=== PATIENT | female | born 1955 | race Caucasian/White ===

== ENCOUNTER → 2016-10-08 | Outpatient (CLI) | payer BC ==
--- NOTE | 2016-10-09 09:30 | CT ---
EXAM DESCRIPTION: CT CHEST WITHOUT IV CONTRAST CLINICAL HISTORY: ABNORMAL CXR COMPARISON: Chest CT performed on June 26, 2015 and a chest radiograph obtained on May 27, 2016 TECHNIQUE: Chest CT was performed without IV contrast. FINDINGS: Mural calcifications are noted in the thoracic aorta and Coronary arteries. No thoracic aortic aneurysm. No pleural or pericardial effusion. There are few nonenlarged mediastinal lymph nodes, but no mediastinal or hilar adenopathy is seen. There are patchy areas of subpleural ground-glass density in both lungs, most prominent anteriorly, but this is all stable from June,. A few tiny cystic lesions are noted in the same location, stable. These could represent mild bronchiectasis. There is a 4 mm ground-glass density nodule in the right lung adjacent to the major fissure superiorly (series 2, image 17), new from the prior exam. No new airspace consolidation is identified. There is a tiny calcified gallstone in the gallbladder. There are 2 left adrenal adenomas, each measuring just over 2 cm diameter and stable from June,. No suspicious bone lesion. IMPRESSION: Chronic appearing changes in both lungs as detailed above including patchy areas of ground-glass density and possible mild bronchiectasis. Findings are stable from June, and could represent chronic interstitial lung disease particularly cryptogenic organizing pneumonia. 4 mm ground-glass density nodule in the right lung adjacent to the major fissure superiorly, also nonspecific. Differential considerations include infectious, inflammatory or neoplastic lung disease. As per Fleischner Society guidelines for follow-up and management of pulmonary nodules: For patient at low risk (minimal or absent history of smoking and of other known risk factors), recommend follow-up chest CT at 12 months; if unchanged, no further follow-up. For patient at high risk (history of smoking or of other known risk factors), recommend initial follow-up chest CT at 6-12 months, then at 18-24 months if no interval change. Atherosclerotic vascular disease and other nonacute findings as detailed above Electronically signed by: Jordi Schroeder DO 10/09/2016 09:28
== END | disposition home or self-care (01) ==
LOC: CT 15:00
PROVIDERS: ATTEND Internal Medicine Pulmonary Disease
DX: J44.9 Chronic obstructive pulmonary disease, unspecified (principal); R06.00 Dyspnea, unspecified

== ENCOUNTER → 2017-04-16 | Outpatient (CLI) | payer BC | END | disposition home or self-care (01) | LOC: LAB.O 08:38 | PROVIDERS: ATTEND Orthopaedic Surgery | DX: Z01.818 Encounter for other preprocedural examination (principal); Z01.812 Encounter for preprocedural laboratory examination ==

== ENCOUNTER 2017-04-27 05:49 | Day surgery (SDC) | payer BC ==
--- NOTE | 2017-04-23 16:49 | HP ---
CHIEF COMPLAINT: Left third digit pain. HISTORY OF PRESENT ILLNESS: Carina is a 61 year-old female with a history of pain in the farias aspect of the hand. She has had an injection for trigger finger and had a positive response to that, but she has now had resumption of both pain and clicking. She has had some locking. At this point, Carina is interested in surgical intervention and we discussed the risks, benefits, and alternatives to operative therapy. She has given informed consent for A-1 missael release. PAST SURGICAL HISTORY: 1. Hysterectomy. CURRENT MEDICATIONS: 1. Valsartan. 2. Omeprazole. 3. Simvastatin. 4. Gabapentin. 5. Janumet. 6. Lyrica. 7. Farxiga. 8. ProAir. 9. Calcium. ALLERGIES: SULFA. CODE STATUS: FULL CODE. IMMUNIZATIONS: Up to date. FAMILY HISTORY: None pertinent to today's complaints. SOCIAL HISTORY: She does not drink or use any illicit drugs. She smokes about a pack a day. REVIEW OF SYSTEMS: Negative except as indicated in History of Present Illness. PHYSICAL EXAMINATION: VITAL SIGNS: Blood pressure 146/78, pulse 79, height 5' 4", weight 180. MENTAL STATUS: The patient is awake, alert, and is able to give a good history and participate in the physical. The patient is oriented to person, place and time. SKIN: Normal tone and turgor. MUSCULOSKELETAL: She is extremely tender over the A-1 missael and she has palpable clicking there. Sensation is intact. She does maintain full range of motion of the digit in flexion but she has now got some stiffness in extension. There is no deformity of the hand. ASSESSMENT: 1. Trigger finger. PLAN: The plan at this point is for A-1 missael release at the third digit. We have discussed the risks, benefits, and alternatives to that and she has given informed consent for that. #[id number] [facility]
[2017-04-27] MEDS ORDERED: LACTATED RINGERS 1,000 ML ONE (06:10)
[2017-04-27] MEDS ORDERED: ceFAZolin SODIUM 1 GM VIAL ONE ×2 (06:10→09:33)
[2017-04-27] MEDS ORDERED: SODIUM CHL 0.9% 100ML MINI-BAG 100 ML IVPB ONE (06:10)
[2017-04-27] MEDS ORDERED: PROPOFOL 200 MG/20 ML VIAL IV ONE (07:00)
[2017-04-27] MEDS ORDERED: BUPIVACAINE 0.25% INJ 30 ML VIAL INJ ONE (09:33)
[2017-04-27] MEDS ORDERED: LIDOCAINE 1% 50 ML VIAL INJ ONE (09:33)
[2017-04-27] MEDS ORDERED: VANCOMYCIN HCL INJ 1,000 MG VIAL IVPB ONE (09:33)
[2017-04-27 11:58] VITALS: BP 188/70; TEMP 97.1; O2SAT 95
--- NOTE | 2017-04-27 17:36 | OP ---
DATE OF PROCEDURE: 04/27/17 PREOPERATIVE DIAGNOSIS: 1. Trigger finger, left third digit. POSTOPERATIVE DIAGNOSIS: 1. Trigger finger, left third digit. PROCEDURE: 1. Left third digit A1 missael release. SURGEON: Mathew Aquino MD. MANAGER OUTPATIENT: Jonnie Vazquez CST, SA-C. ANESTHESIA: Local with sedation. COMPLICATIONS: None. FINDINGS: Triggering at the A1 missael with fraying of the FDS flexor tendon at about the level of the A1 missael. INDICATION: Ms. Hassan has a history of triggering and pain at the A1 missael. She has pain there and has requested operative intervention. After discussing the risks, benefits and alternatives to operative therapy, the patient has given informed consent for that. PROCEDURE: The patient was brought to the Operating Room and placed in the supine position. Sedation was administered and local anesthetic was injected into the operative area. Following injection, the arm was sterilely prepped and draped. A transverse incision was made directly overlying the A1 missael of the triggering digit and blunt dissection was carried down to the missael while protecting the digital nerves. After identification of the missael, the missael was transected and a Duncan elevator was passed both proximally and distally to ensure complete release. The finger was flexed and extended and there was no evidence of locking or clicking. The wound was thoroughly irrigated and closed with Nylon suture. A sterile dressing was placed and the patient was taken to the Day Surgery Unit. PLAN: The plan at this point is for her to continue with range of motion of the digits and will followup with us in two days. #[id number] [facility]
== END 2017-04-27 11:50 | disposition home or self-care (01) ==
LOC: AMB 05:49
PROVIDERS: ATTEND Orthopaedic Surgery
DX: M65.332 Trigger finger, left middle finger (principal); I10 Essential (primary) hypertension; E11.9 Type 2 diabetes mellitus without complications; K21.9 Gastro-esophageal reflux disease without esophagitis; J44.9 Chronic obstructive pulmonary disease, unspecified; Z88.2 Allergy status to sulfonamides; Z79.899 Other long term (current) drug therapy
CPT/HCPCS: 01810; 26055; 36416; 82948; J0690; J3370; J3490; J7050; J7120

== ENCOUNTER → 2017-10-11 | Outpatient (CLI) | payer BC ==
--- NOTE | 2017-10-11 13:28 | US ---
EXAM DESCRIPTION: Gall Bladder CLINICAL HISTORY: DYSPEPSIA COMPARISON: None Available. TECHNIQUE: Right upper quadrant ultrasound FINDINGS: Pancreas: Visualized portions of the pancreas are unremarkable. Bowel gas obscures some areas. Aorta/inferior vena cava: No aortic aneurysm. Normal inferior vena cava. Liver: The liver is homogeneous in texture with mildly increased echogenicity of the hepatic parenchyma suggesting mild fatty infiltration. No focal liver lesion or intrahepatic bile duct dilatation. No liver surface irregularity. Portal vein is prominent in caliber measuring 1.3 cm. Otherwise normal appearance of the portal vein and hepatic veins. Gallbladder: Gallbladder appears normal in size with no abnormal distention to suggest obstruction. Echogenic debris is seen in the dependent portion of gallbladder with differential considerations including solidified sludge versus nonshadowing stones. These measure approximately 5-10 mm in diameter with at least 2 identified. Follow-up in a year may be helpful to see if these resolve (as expected for sludge) or if shadowing can be definitively demonstrated (maturing stones). Sonographic Medina sign was reported as negative. Common bile duct: Normal caliber measuring 3.0 mm. Right kidney: Renal length is 10.6 cm. Normal cortical echogenicity. Cortical thickness is normal. No hydronephrosis is seen. No renal mass or shadowing calculus. IMPRESSION: Debris within the gallbladder lumen could be nonshadowing stones or solidified sludge. See above. Electronically signed by: Ramos Brown MD 10/11/2017 1:27 PM VICE CHAIRMAN
== END ==
LOC: US 07:48
PROVIDERS: ATTEND Family Medicine
DX: I50.32 Chronic diastolic (congestive) heart failure (principal); R10.84 Generalized abdominal pain; K30 Functional dyspepsia

== ENCOUNTER → 2017-11-10 | Outpatient (CLI) | payer BC ==
--- NOTE | 2017-11-12 12:43 | MAM ---
EXAM DESCRIPTION: 3D Screening BILATERAL : Digital Mammography. CLINICAL HISTORY: 62 years Female ANNUAL SCREENING . No complaints.. COMPARISON: 2-D digital screening bilateral study 05/05/2016. No prior reports available. Report from prior examination also reviewed. TECHNIQUE: Bilateral CC and MLO projection full-field images, 3-D tomosynthesis digital mammographic technique. Also bilateral synthesized CC/ MLO full-field images. CAD not utilized. FINDINGS: The breast parenchymal density pattern is: Almost entirely fatty. No skin thickening or nipple retraction bilateral solitary coarse and microcalcifications. No focal, stellate mass or density, focal asymmetry , and no suspicious microcalcifications bilaterally. Stable mammograms compared to prior study, taking into account differences in mammographic technique IMPRESSION: BI-RADS CATEGORY: 2 - BENIGN FINDINGS. FOLLOW UP: Routine digital bilateral screening, one - year interval from October 2017. Written communication explaining the IMPRESSION and follow-up, will be mailed to the patient and referring health care provider. According to the [employer], yearly mammograms are recommended starting at age 40 and continuing as long as a woman is in good health. Any breast change noted on a breast self-exam should be reported promptly to the patient's healthcare provider. Breast MRI is recommended for women with an approximately 20-25% or greater lifetime risk of breast cancer, including women with a strong family history of breast or ovarian cancer and women who have been treated for Hodgkin's disease. A negative mammographic report should not delay tissue diagnosis in patients with significant clinical history or physical findings. Extremely dense breast tissue limits the sensitivity of digital mammography. Electronically signed by: Jonnie Vazquez MD 11/12/2017 12:41 PM CDT
== END ==
LOC: MAMMO 08:27
PROVIDERS: ATTEND Family Medicine
DX: Z12.31 Encounter for screening mammogram for malignant neoplasm of breast (principal)

== ENCOUNTER → 2018-02-08 | Outpatient (CLI) | payer BC | LOC: GMAM 12:15 | PROVIDERS: ATTEND Family Medicine | DX: E83.52 Hypercalcemia (principal) ==

== ENCOUNTER → 2018-10-21 | Outpatient (CLI) | payer BC | LOC: GMAM 10:49 | PROVIDERS: ATTEND Family Medicine | DX: M79.89 Other specified soft tissue disorders (principal) ==

== ENCOUNTER → 2018-11-18 | Outpatient (CLI) | payer BC ==
--- NOTE | 2018-11-21 16:30 | MAM ---
EXAM DESCRIPTION: 3D Screening BILATERAL : Digital Mammography. CLINICAL HISTORY: 63 years Female SCREENING . No complaints. Mother with breast cancer. Childbirth. Postmenopausal. No HRT. Lifetime risk of developing breast cancer (Tyrer-Cuzick model)(%): 14.3. COMPARISON: Bilateral screening digital breast tomosynthesis 11/10/2017. TECHNIQUE: Bilateral CC and MLO projection full-field images, digital tomosynthesis mammographic technique Bilateral digital 2-D full-field MLO images. CAD not available for tomosynthesis or 2-D images. FINDINGS: The breast parenchymal density pattern is: Almost entirely fatty. No skin thickening or nipple retraction. Bilateral solitary microcalcifications. Few bilateral vascular calcifications. More calcifications in the left breast. No new focal, stellate mass or density, focal asymmetry , and no suspicious microcalcifications bilaterally. Stable mammograms compared to prior study. IMPRESSION: Benign exam. BIRAD CATEGORY: 2 BENIGN FINDINGS. RECOMMENDATIONS: FOLLOW UP: Routine digital bilateral mammographic screening, one year interval from October 2018. Written communication explaining the IMPRESSION and follow-up, will be mailed to the patient and referring health care provider. According to the [employer], yearly mammograms are recommended starting at age 40 and continuing as long as a woman is in good health. Any breast change noted on a breast self-exam should be reported promptly to the patient's healthcare provider. Breast MRI is recommended for women with an approximately 20-25% or greater lifetime risk of breast cancer, including women with a strong family history of breast or ovarian cancer and women who have been treated for Hodgkin's disease. A negative mammographic report should not delay tissue diagnosis in patients with significant clinical history or physical findings. Extremely dense breast tissue limits the sensitivity of digital mammography. Electronically signed by: Jonnie Vazquez MD 11/21/2018 4:28 PM CDT
== END ==
LOC: MAMMO 08:00
PROVIDERS: ATTEND Family Medicine
DX: Z12.31 Encounter for screening mammogram for malignant neoplasm of breast (principal)

== ENCOUNTER → 2019-01-23 | Outpatient (CLI) | payer BC ==
--- NOTE | 2019-01-23 09:21 | CT ---
EXAM DESCRIPTION: Chest w/o Contrast CLINICAL HISTORY: 63 years, Female, COPD COMPARISON: Previous CT chest October 08, 2016 TECHNIQUE: Thin-section noncontrast axial CT images are obtained according to our protocol. Reconstructed MPR images are created and reviewed as well. FINDINGS: Lungs: Groundglass infiltrates are seen in the upper and lower lobes with honeycomb fibrosis anteriorly. There is mild interval progression since previous study. Differential considerations would include DIP with developing UIP. Acute on chronic hypersensitivity pneumonitis could have a similar appearance. Pneumonia is not thought likely. If lung biopsy is planned for diagnosis, samples should be obtained from areas of groundglass infiltrate which would more likely show active inflammation. Tiny nodule in superior segment right lower lobe measures 4 mm. This is unchanged compared to the previous study two years and three months ago and no further imaging follow-up is needed for this finding. Mediastinum: Lymph nodes are normal in size. Normal vascular contours. Heart size is normal with no pericardial effusion. Chest wall/axilla: No mass or adenopathy. Lower neck/supraclavicular: No mass or adenopathy. Upper abdomen: Few calcified gallstones in the dependent portion of the gallbladder. Thick adrenal glands bilaterally consistent with hyperplasia or adenomas. Appearance is unchanged compared to previous study. Small accessory splenule is present. Otherwise unremarkable upper abdominal viscera. IMPRESSION: Groundglass infiltrates and honeycomb fibrosis of the lungs slightly progressed since previous study. See above. This exam was performed according to our departmental dose-optimization program, which includes automated exposure control, adjustment of the mA and/or kV according to patient size and/or use of iterative reconstruction technique. Total DLP equals 386.7 mGycm. Electronically signed by: Ramos Brown MD 01/23/2019 9:19 AM CDT
== END ==
LOC: CT 08:10
DX: J44.9 Chronic obstructive pulmonary disease, unspecified (principal); J84.10 Pulmonary fibrosis, unspecified

== ENCOUNTER 2019-05-02 16:48 | Inpatient (IN) | payer BC ==
--- NOTE | 2019-05-02 17:01 | HP ---
SUPERVISING PHYSICIAN: Dalton Reardon M.D. CHIEF COMPLAINT: Shortness of breath. HISTORY OF PRESENT ILLNESS: This is a 63 year-old female who came in as a direct admission from Dr. Adorno's office. This is a patient who has a longstanding history of smoking and has a history of chronic obstructive pulmonary disease. She has a documented history of diastolic heart failure as well although she states she has never been told that. Anyhow the patient complained of shortness of breath which started today. She is not having any complaints of fever. She has had somewhat of a cough. When she coughs it is productive with whitish yellow sputum which is somewhat frothy at times. She did not complain of any pleuritic chest pain. 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 When she got over to the office her O2 saturations were in the mid to high 80s. She was placed on oxygen and it still hovered around 90% range. A chest x-ray was done which showed pulmonary vascular congestion and bilateral lower lobe airspace opacities which were concerning for pneumonia via the interpretation. Her labs were done which showed a normal white count with no left shift. Her chemistry was unremarkable except for a low potassium at 3.2. A BNP was done but was not available upon her arrival here. At the time of examination the patient is alert and oriented with mild to moderate shortness of breath. She did not complain of any pain at this time. PAST MEDICAL HISTORY: 1. Chronic obstructive pulmonary disease for which she uses oxygen at night but no throughout the day. 2. Carotid artery stenosis. 3. Hyperlipidemia. 4. Hypertension. 5. She has an ejection fraction of 60% with diastolic heart failure per a echocardiogram done back in 2016. She has tricuspid regurgitation on the echocardiogram as well. 6. Pulmonary nodule which is followed as an outpatient by Dr. Adhikari. 7. Type 2 diabetes mellitus. 8. Diabetic neuropathy. PAST SURGICAL HISTORY: 1. Hysterectomy with bilateral salpingo-oophorectomy. 2. Bronchoscopy. 3. Colonoscopy. 4. Esophagogastroduodenoscopy. 5. Stress test. 6. Echocardiogram. CURRENT MEDICATIONS: Please see the med. rec. list on the computer. ALLERGIES: SULFA DRUGS. FAMILY HISTORY: Father at age 34 of alcohol abuse. Mother at 86 of age as well as the fact she had coronary artery disease, breast cancer and type 2 diabetes mellitus. SOCIAL HISTORY: REVIEW OF SYSTEMS: PHYSICAL EXAMINATION: VITAL SIGNS: Blood pressure 159/82, heart rate 73, respiratory rate 22, temperature 98.1, oxygen saturation is 93% on nasal cannula. GENERAL: Ms. Hassan is a 63 year-old female who is in mild to moderate respiratory distress at rest. HEENT: Head is normocephalic and atraumatic. Eyes: Pupils are equal and reactive. Nose: No drainage. Throat with moist mucosa. NECK: Supple. Midline trachea. No jugular venous distention. CHEST: Chest is symmetrical with equal rise and fall of the chest with inspiration and expiration. Lung sounds are with bilateral rhonchi. There is wheeze in the upper lung aguirre bilaterally. CARDIOVASCULAR: Regular rate and rhythm. Normal S1 and S2. She does have a 2/6 systolic murmur noted as well. ABDOMEN: Soft. Positive bowel sounds. GENITOURINARY: Exam is deferred. EXTREMITIES: Lower extremities with no significant edema. NEUROLOGIC: The patient is alert and oriented. Moves all extremities. Extraocular movements are intact. LABORATORY: Labs and films as discussed in the History of Present Illness. ASSESSMENT: 1. Acute exacerbation of diastolic heart failure. 2. Chronic obstructive pulmonary disease exacerbation. 3. Possible pneumonia. 4. History of hypertension. 5. Hyperlipidemia. 6. Diabetes mellitus type 2. 7. Continuous nicotine dependency. 8. Gastroesophageal reflux disease. 9. Preexisting heart murmur. 10. Hypokalemia. PLAN: At this time the patient will be admitted to the Medical/Surgery Unit for the above reasons. Will place her on scheduled diuretics and give her a dose of potassium as she has low potassium on her labs at the office. I am also going to place her on scheduled nebulizer therapy as well as scheduled corticosteroids given her COPD exacerbation. Although her white count is normal and no history of fever, cannot completely rule out pneumonia, so I am placing her Rocephin as well as azithromycin. I placed her on DVT and GI ulcer prophylaxis as well as sliding scale insulin per the hospital protocol. Once her medications are verified I will resume those in the computer as well. [id number]
[2019-05-02] MEDS ORDERED: NITROGLYCERIN 0.4 MG 25 EA TAB SL PRN (17:31)
[2019-05-02] MEDS ORDERED: DEXTROSE 50% 25 GM/50 ML SYG IV PRN (17:31)
[2019-05-02] MEDS ORDERED: SODIUM CHLORIDE 0.9% (FLUSH) 10 ML SYG IV PRN (17:31)
[2019-05-02] MEDS ORDERED: GLUCAGON INJ 1 MG VIAL SUBCU PRN (17:31)
[2019-05-02] MEDS ORDERED: POTASSIUM CHLORIDE 20 MEQ TAB PO ONE (17:34)
[2019-05-02] MEDS ORDERED: AZITHROMYCIN IV 500 MG in SODIUM CHLORIDE 0.9% 250ML 250 ML IVPB SCH (18:00)
[2019-05-02] MEDS ORDERED: SODIUM CHLORIDE 0.9% 250ML 250 ML ONE (18:35)
[2019-05-02] MEDS ORDERED: AZITHROMYCIN IV 500 MG VIAL IVPB ONE (18:36)
[2019-05-02] MEDS: ENOXAPARIN SODIUM 40 MG/0.4 ML SYG SUBCU SCH (18:42)
[2019-05-02] MEDS: IV SET AND CAP CHANGE INJ INJ SCH (18:43)
[2019-05-02] MEDS ORDERED: cefTRIAXone SODIUM 1 GM VIAL ONE (19:25)
[2019-05-02] MEDS ORDERED: SODIUM CHLORIDE 0.9% 50ML 50 ML ONE (19:25)
[2019-05-02] MEDS: IPRATROPIUM/ALBUTEROL 3 ML VIAL INH SCH (20:32)
[2019-05-02] MEDS ORDERED: ONDANSETRON INJ 4 MG/2 ML VIAL IV PRN (20:54)
[2019-05-02] MEDS ORDERED: NON-FORMULARY MEDICATION 1 EA MIS (Gabapentin [Neurontin] 600 MG) PO SCH (21:00)
[2019-05-02] MEDS ORDERED: AMLODIPINE BESYLATE 2.5 MG PO SCH (21:00)
[2019-05-02] MEDS ORDERED: GABAPENTIN 300 MG CAP ONE (21:02)
[2019-05-02] MEDS ORDERED: amLODIPine BESYLATE 5 MG TAB ONE ×2 (21:03→21:24)
[2019-05-02] MEDS ORDERED: PREGABALIN 25 MG CAP ONE (21:03)
[2019-05-02] MEDS: INSULIN LISPRO 100 UNITS/ML PEN SUBCU SCH (21:11)
[2019-05-02] MEDS: cefTRIAXone SODIUM 1 GM in SODIUM CHL 0.9% 50ML MIN-BAG+ 50 ML IVPB SCH (21:16)
[2019-05-02] MEDS: METFORMIN PO SCH (21:20)
[2019-05-02] MEDS: SITAGLIPTIN PO SCH (21:20)
[2019-05-02] MEDS: [UNRECOGNIZED DRUG - OTHER] PO SCH (21:20)
[2019-05-02] MEDS: [UNRECOGNIZED DRUG - OTHER] PO SCH (21:20)
[2019-05-02] MEDS: methylPREDNISolone SODIUM SUC 40 MG/ML VIAL IV SCH (21:21)
[2019-05-02] MEDS: NON-FORMULARY MEDICATION 1 EA MIS (Pregabalin [Lyrica] 50 MG) PO SCH (21:24)
[2019-05-02] MEDS: NICOTINE PATCH 21 MG TD SCH (21:35)
[2019-05-03] MEDS: PANTOPRAZOLE SODIUM TAB 40 MG PO SCH (05:54)
[2019-05-03] MEDS: INSULIN LISPRO 100 UNITS/ML PEN SUBCU SCH ×4 (07:07→21:06)
--- NOTE | 2019-05-03 07:39 | RAD ---
EXAM: Single view chest. INDICATION: CHF. COMPARISON: Chest x-ray: 05/27/2016. FINDINGS: There is pulmonary vascular congestion with interstitial edema. The heart is at the upper limit of normal in size. There is no pneumothorax or pleural effusion. IMPRESSION: Pulmonary vascular congestion with interstitial edema. Electronically signed by: Darien Castanon MD 05/03/2019 7:38 AM CDT
[2019-05-03] MEDS ORDERED: [UNRECOGNIZED DRUG - OTHER] PO SCH ×2 (09:00→11:30)
[2019-05-03] MEDS: IPRATROPIUM/ALBUTEROL 3 ML VIAL INH SCH (09:11)
[2019-05-03] MEDS ORDERED: SITagliptin 50 MG TAB PO ONE (09:39)
[2019-05-03] MEDS ORDERED: CITALOPRAM HBR 20 MG TAB ONE (09:39)
[2019-05-03] MEDS ORDERED: metFORMIN HCL 500 MG TAB ONE (09:40)
[2019-05-03] MEDS ORDERED: PREGABALIN 25 MG CAP ONE (09:40)
[2019-05-03] MEDS ORDERED: FUROSEMIDE INJ 40 MG/4 ML VIAL ONE (09:41)
[2019-05-03] MEDS ORDERED: methylPREDNISolone SODIUM SUC 40 MG/ML VIAL ONE (09:41)
[2019-05-03] MEDS: METFORMIN PO SCH (09:52)
[2019-05-03] MEDS: SITAGLIPTIN PO SCH ×2 (09:52→16:48)
[2019-05-03] MEDS: [UNRECOGNIZED DRUG - OTHER] PO SCH (09:52)
[2019-05-03] MEDS: ASPIRIN (ENTERIC COATED) 81 MG TAB PO SCH (09:53)
[2019-05-03] MEDS: LOSARTAN POTASSIUM 100 MG TAB PO SCH (09:53)
[2019-05-03] MEDS: methylPREDNISolone SODIUM SUC 40 MG/ML VIAL IV SCH ×2 (09:53→21:14)
[2019-05-03] MEDS: [UNRECOGNIZED DRUG - OTHER] PO SCH ×3 (09:54→16:48)
[2019-05-03] MEDS: ATORVASTATIN 20 MG TAB PO SCH (09:54)
[2019-05-03] MEDS: CITALOPRAM HBR 20 MG TAB PO SCH (09:55)
[2019-05-03] MEDS: NON-FORMULARY MEDICATION 1 EA MIS (Liraglutide [Victoza] 18 MG) SUBCU SCH (09:55)
[2019-05-03] MEDS: NICOTINE PATCH 21 MG TD SCH (09:55)
[2019-05-03] MEDS: FUROSEMIDE INJ 40 MG/4 ML VIAL IV SCH ×2 (09:55→16:48)
[2019-05-03] MEDS: NON-FORMULARY MEDICATION 1 EA MIS (Pregabalin [Lyrica] 50 MG) PO SCH (10:00)
[2019-05-03] MEDS: MULTIPLE VITAMINS W/ MINERALS 1 EA TAB PO SCH (10:07)
[2019-05-03] MEDS: GABAPENTIN 400 MG CAP PO SCH (12:49)
[2019-05-03] MEDS: IPRATROPIUM/ALBUTEROL 3 ML VIAL NEB SCH ×3 (12:51→19:54)
--- NOTE | 2019-05-03 13:10 | PN ---
SUPERVISING PHYSICIAN: Dalton Reardon MD DATE: 05/03/19 SUBJECTIVE: The patient states she feels a little bit better today. She is coughing still. Shortness of breath is nearly to her baseline. OBJECTIVE: VITAL SIGNS: Blood pressure 137/75. Heart rate 67. Respiratory rate 20. Temperature 98.0. Oxygen saturation 98% on 3 liter via nasal cannula. GENERAL: Ms. Hassan is a 63-year-old female in no active distress currently. NEUROLOGIC: Alert and oriented. LUNGS: Diffuse wheezing and scattered rhonchi bilaterally. CARDIOVASCULAR: Regular rate and rhythm. Normal S1, S2. ABDOMEN: Soft. Positive bowel sounds. GENITOURINARY: Deferred. EXTREMITIES: Lower extremities with no edema. LABORATORY: White count 7.5, hemoglobin 12.9, platelet count 253. Chemistry is pretty much unremarkable. She does have an elevated glucose. RADIOLOGY: Her chest x-ray shows still pulmonary vascular congestion with interstitial edema. ASSESSMENT: 1. Acute exacerbation of diastolic heart failure. 2. Chronic obstructive pulmonary disease exacerbation. 3. Possible pneumonia, however it is not looking like that is the case at this time. 4. Hyperlipidemia. 5. Hypertension. 6. Diabetes mellitus, type 2. 7. Continued nicotine dependency. 8. Gastroesophageal reflux disease. 9. Preexisting heart murmur. 10. Hypokalemia. PLAN: We will continue current antibiotics, diuretics as well as corticosteroids and nebulizer treatments. Clinical status seems to be stepwise improving. As long as she stays improving, we will reduce her steroids to p.o. tomorrow and attempt to get her out of the hospital in the next 48 hours or so. [facility][id number] [facility]
[2019-05-03] MEDS: METFORMIN HCL PO SCH (16:48)
[2019-05-03] MEDS ORDERED: SODIUM CHLORIDE 0.9% 250ML 250 ML ONE (18:11)
[2019-05-03] MEDS ORDERED: SODIUM CHL 0.9% 50ML MIN-BAG+ 50 ML IVPB ONE (18:11)
[2019-05-03] MEDS ORDERED: AZITHROMYCIN IV 500 MG VIAL IVPB ONE (18:12)
[2019-05-03] MEDS ORDERED: cefTRIAXone SODIUM 1 GM VIAL ONE (18:12)
[2019-05-03] MEDS: ENOXAPARIN SODIUM 40 MG/0.4 ML SYG SUBCU SCH (18:27)
[2019-05-03] MEDS: cefTRIAXone SODIUM 1 GM in SODIUM CHL 0.9% 50ML MIN-BAG+ 50 ML IVPB SCH (18:27)
[2019-05-03] MEDS: AZITHROMYCIN IV 500 MG in SODIUM CHLORIDE 0.9% 250ML 250 ML IVPB SCH (20:13)
[2019-05-03] MEDS ORDERED: metFORMIN HCL 500 MG TAB PO SCH (21:00)
[2019-05-03] MEDS ORDERED: SITagliptin 50 MG TAB PO SCH (21:00)
[2019-05-03] MEDS ORDERED: NON-FORMULARY MEDICATION 1 EA MIS PO SCH (21:00)
[2019-05-03] MEDS: PREGABALIN 25 MG CAP PO SCH (21:14)
[2019-05-03] MEDS: GABAPENTIN 300 MG CAP PO SCH (21:14)
[2019-05-03] MEDS: amLODIPine BESYLATE 5 MG TAB PO SCH (21:15)
[2019-05-04] MEDS: PANTOPRAZOLE SODIUM TAB 40 MG PO SCH (06:10)
--- NOTE | 2019-05-04 06:42 | RAD ---
EXAM: XR Chest, 2 Views CLINICAL HISTORY: The patient is 63 years old and is Female; follow up CHF TECHNIQUE: Frontal and lateral views of the chest. COMPARISON: Chest radiograph May 03, 2019. FINDINGS: LUNGS: Mild diffuse interstitial opacities are present. PLEURAL SPACE: Unremarkable. No pneumothorax. HEART: The cardiac silhouette is enlarged and stable. MEDIASTINUM: Unremarkable. BONES/JOINTS: Unremarkable. VASCULATURE: Prominence of the central vasculature is present. Atherosclerosis of the aorta is present. IMPRESSION: Stable chest. Electronically signed by: Haley Gastelum MD 05/04/2019 6:40 AM CDT
[2019-05-04] MEDS: INSULIN LISPRO 100 UNITS/ML PEN SUBCU SCH ×4 (07:09→20:49)
[2019-05-04] MEDS: METFORMIN HCL PO SCH ×2 (07:18→17:03)
[2019-05-04] MEDS: SITAGLIPTIN PO SCH ×2 (07:18→17:03)
[2019-05-04] MEDS: [UNRECOGNIZED DRUG - OTHER] PO SCH ×2 (07:19→17:03)
[2019-05-04] MEDS: IPRATROPIUM/ALBUTEROL 3 ML VIAL NEB SCH ×4 (08:32→21:03)
[2019-05-04] MEDS ORDERED: POTASSIUM CHLORIDE 20 MEQ TAB PO ONE (08:37)
[2019-05-04] MEDS: FUROSEMIDE INJ 40 MG/4 ML VIAL IV SCH ×2 (09:22→17:03)
[2019-05-04] MEDS: ASPIRIN (ENTERIC COATED) 81 MG TAB PO SCH (09:23)
[2019-05-04] MEDS: LOSARTAN POTASSIUM 100 MG TAB PO SCH (09:23)
[2019-05-04] MEDS: PREGABALIN 25 MG CAP PO SCH ×2 (09:23→20:48)
[2019-05-04] MEDS: MULTIPLE VITAMINS W/ MINERALS 1 EA TAB PO SCH (09:24)
[2019-05-04] MEDS: NICOTINE PATCH 21 MG TD SCH (09:25)
[2019-05-04] MEDS: CITALOPRAM HBR 20 MG TAB PO SCH (09:25)
[2019-05-04] MEDS: ATORVASTATIN 20 MG TAB PO SCH (09:25)
[2019-05-04] MEDS: NON-FORMULARY MEDICATION 1 EA MIS (Liraglutide [Victoza] 18 MG) SUBCU SCH (09:26)
[2019-05-04] MEDS: LIRAGLUTIDE SUBCU SCH (09:56)
[2019-05-04] MEDS: predniSONE 20 MG TAB PO SCH (09:57)
[2019-05-04] MEDS: GABAPENTIN 400 MG CAP PO SCH (11:46)
--- NOTE | 2019-05-04 11:51 | PN ---
DATE: 05/04/19 SUPERVISING PHYSICIAN: Dalton Reardon MD SUBJECTIVE: The patient is sitting up in bed. Her is at her bedside. She still has occasional shortness of breath but it has improved since yesterday. Denies chest pain, nausea or vomiting. OBJECTIVE: VITAL SIGNS: temperature 98.3, heart rate 71, blood pressure 105/65, respiratory rate 19, oxygen saturation 97% on 2 liters nasal cannula. She did have oxygen saturations that dropped to 88 overnight and required an increase in her oxygen to 3 liters nasal cannula. RESPIRATORY: Diminished at the bases, otherwise she has expiratory wheezes throughout all lung aguirre. CARDIAC: Regular rate and rhythm. GI: Abdomen soft, nondistended, non-tender. Bowel sounds are positive. NEUROLOGIC: She is awake, alert, and oriented x3. LABORATORY: Her WBCs are 18,700 with hemoglobin of 13.1, hematocrit 40.9. She has a left shift on her differential. Her blood sugars have run between 122 and 153. Her potassium was slightly low at 3.5. RADIOLOGY: Chest x-ray shows stable chest. All other labs and films have been reviewed via the EMR. ASSESSMENT: 1. Acute exacerbation of diastolic heart failure. 2. Chronic obstructive pulmonary disease with exacerbation. 3. Possible pneumonia, however, that has most likely been ruled out as per chest x-ray. 4. Hyperlipidemia. 5. Hypertension. 6. Diabetes mellitus, type 2. 7. Continued nicotine dependency. 8. Gastroesophageal reflux disease. 9. Preexisting heart murmur. 10. Hypokalemia. PLAN: We will continue present supportive care including her chronic antibiotics and diuretics. Her corticosteroids have been changed from IV to oral and will monitor her respiratory status closely. She will continue with her nebulizer treatments. We discussed smoking cessation at length as well as chronic obstructive pulmonary disease. We encouraged good pulmonary hygiene. I have ordered lab for in the morning as well as some potassium supplementation. We will continue to monitor closely and follow as needed. #[id number] [facility]
[2019-05-04] MEDS ORDERED: SODIUM CHL 0.9% 50ML MIN-BAG+ 50 ML IVPB ONE (16:58)
[2019-05-04] MEDS ORDERED: cefTRIAXone SODIUM 1 GM VIAL ONE (16:58)
[2019-05-04] MEDS: cefTRIAXone SODIUM 1 GM in SODIUM CHL 0.9% 50ML MIN-BAG+ 50 ML IVPB SCH (17:43)
[2019-05-04] MEDS: ENOXAPARIN SODIUM 40 MG/0.4 ML SYG SUBCU SCH (17:44)
[2019-05-04] MEDS ORDERED: SODIUM CHLORIDE 0.9% 250ML 250 ML ONE (19:11)
[2019-05-04] MEDS ORDERED: AZITHROMYCIN IV 500 MG VIAL IVPB ONE (19:12)
[2019-05-04] MEDS: AZITHROMYCIN IV 500 MG in SODIUM CHLORIDE 0.9% 250ML 250 ML IVPB SCH (19:18)
[2019-05-04] MEDS: GABAPENTIN 300 MG CAP PO SCH (20:48)
[2019-05-04] MEDS: amLODIPine BESYLATE 5 MG TAB PO SCH (20:48)
[2019-05-05] MEDS: PANTOPRAZOLE SODIUM TAB 40 MG PO SCH (05:57)
[2019-05-05] MEDS: INSULIN LISPRO 100 UNITS/ML PEN SUBCU SCH ×4 (07:07→20:50)
[2019-05-05] MEDS: [UNRECOGNIZED DRUG - OTHER] PO SCH ×2 (07:09→16:50)
[2019-05-05] MEDS: SITAGLIPTIN PO SCH ×2 (07:58→16:50)
[2019-05-05] MEDS: METFORMIN HCL PO SCH ×2 (07:58→16:50)
[2019-05-05] MEDS: IPRATROPIUM/ALBUTEROL 3 ML VIAL NEB SCH ×4 (08:32→19:54)
[2019-05-05] MEDS ORDERED: POTASSIUM CHLORIDE 20 MEQ TAB PO ONE (08:56)
[2019-05-05] MEDS: LIRAGLUTIDE SUBCU SCH (09:31)
[2019-05-05] MEDS: MULTIPLE VITAMINS W/ MINERALS 1 EA TAB PO SCH (09:33)
[2019-05-05] MEDS: CITALOPRAM HBR 20 MG TAB PO SCH (09:33)
[2019-05-05] MEDS: PREGABALIN 25 MG CAP PO SCH ×2 (09:33→20:33)
[2019-05-05] MEDS: ASPIRIN (ENTERIC COATED) 81 MG TAB PO SCH (09:33)
[2019-05-05] MEDS: ATORVASTATIN 20 MG TAB PO SCH (09:33)
[2019-05-05] MEDS: predniSONE 20 MG TAB PO SCH (09:33)
[2019-05-05] MEDS: LOSARTAN POTASSIUM 100 MG TAB PO SCH (09:34)
[2019-05-05] MEDS: FUROSEMIDE INJ 40 MG/4 ML VIAL IV SCH ×2 (09:34→16:53)
[2019-05-05] MEDS: NICOTINE PATCH 21 MG TD SCH (09:34)
[2019-05-05] MEDS: GABAPENTIN 400 MG CAP PO SCH (12:00)
[2019-05-05] MEDS: IV SET AND CAP CHANGE INJ INJ SCH (17:56)
[2019-05-05] MEDS ORDERED: cefTRIAXone SODIUM 1 GM VIAL ONE (17:57)
[2019-05-05] MEDS ORDERED: SODIUM CHL 0.9% 50ML MIN-BAG+ 50 ML IVPB ONE (17:57)
[2019-05-05] MEDS: cefTRIAXone SODIUM 1 GM in SODIUM CHL 0.9% 50ML MIN-BAG+ 50 ML IVPB SCH (17:58)
[2019-05-05] MEDS: ENOXAPARIN SODIUM 40 MG/0.4 ML SYG SUBCU SCH (17:59)
--- NOTE | 2019-05-05 18:00 | PN ---
DATE: 05/05/19 SUPERVISING PHYSICIAN: Dalton Reardon M.D. SUBJECTIVE: The patient is sitting in bed. is at the bedside. She is feeling somewhat better but still gets short of breath. I have encouraged her to get up and ambulate frequently. We discussed smoking cessation at length. Otherwise denies chest pain, nausea or vomiting. OBJECTIVE: VITAL SIGNS: Temperature 98.1, heart rate 73, blood pressure 135/75, respiratory rate 17, O2 sat 94% on 3 liters nasal cannula. RESPIRATORY: Diminished breath sounds throughout with a few expiratory wheezes in the apices. CARDIAC: Regular rate and rhythm. GASTROINTESTINAL: Abdomen is soft, nondistended, non-tender. Bowel sounds are positive. NEUROLOGIC: She is awake, alert and oriented times three. LABORATORY: WBCs have improved to 12.7 with hemoglobin 12.3, hematocrit 38.3. Potassium is slightly low at 3.4 with chloride 96. Blood sugars have run between 75 and 204. All other labs and films have been reviewed via the EMR. ASSESSMENT: 1. Acute exacerbation of diastolic heart failure. 2. Chronic obstructive pulmonary disease with exacerbation. 3. Possible pneumonia, however, that has most likely been ruled out as per chest x-ray. 4. Hyperlipidemia. 5. Hypertension. 6. Diabetes mellitus, type 2. 7. Continued nicotine dependency. 8. Gastroesophageal reflux disease. 9. Preexisting heart murmur. 10. Hypokalemia. PLAN: We will continue present supportive care. I have ordered a chest x-ray and lab for in the morning. Her IV steroids have been tapered off and she is on oral steroids. We will continue present antibiotic therapy. Will have her ambulate in the hallways. Hopefully she can be discharged tomorrow with close followup with her primary care physician. Will continue to monitor closely and follow as needed. #[id number]
[2019-05-05] MEDS ORDERED: SODIUM CHLORIDE 0.9% 250ML 250 ML ONE (18:14)
[2019-05-05] MEDS ORDERED: AZITHROMYCIN IV 500 MG VIAL IVPB ONE (18:14)
[2019-05-05] MEDS: AZITHROMYCIN IV 500 MG in SODIUM CHLORIDE 0.9% 250ML 250 ML IVPB SCH (18:38)
[2019-05-05] MEDS: GABAPENTIN 300 MG CAP PO SCH (20:33)
[2019-05-05] MEDS: amLODIPine BESYLATE 5 MG TAB PO SCH (20:33)
[2019-05-06] MEDS: PANTOPRAZOLE SODIUM TAB 40 MG PO SCH (06:32)
[2019-05-06] MEDS: INSULIN LISPRO 100 UNITS/ML PEN SUBCU SCH (07:11)
[2019-05-06] MEDS: SITAGLIPTIN PO SCH (07:24)
[2019-05-06] MEDS: METFORMIN HCL PO SCH (07:24)
[2019-05-06] MEDS ORDERED: HYDROXYCHLOROQUINE SULFATE 200 MG PO SCH (07:30)
[2019-05-06] MEDS: predniSONE 20 MG TAB PO SCH (08:49)
[2019-05-06] MEDS: FUROSEMIDE INJ 40 MG/4 ML VIAL IV SCH (08:49)
[2019-05-06] MEDS: CITALOPRAM HBR 20 MG TAB PO SCH (08:50)
[2019-05-06] MEDS: ASPIRIN (ENTERIC COATED) 81 MG TAB PO SCH (08:50)
[2019-05-06] MEDS: PREGABALIN 25 MG CAP PO SCH (08:50)
[2019-05-06] MEDS: ATORVASTATIN 20 MG TAB PO SCH (08:50)
[2019-05-06] MEDS: NICOTINE PATCH 21 MG TD SCH (08:50)
[2019-05-06] MEDS: LOSARTAN POTASSIUM 100 MG TAB PO SCH (08:50)
[2019-05-06] MEDS: MULTIPLE VITAMINS W/ MINERALS 1 EA TAB PO SCH (08:50)
[2019-05-06] MEDS: LIRAGLUTIDE SUBCU SCH (09:12)
[2019-05-06] MEDS: IPRATROPIUM/ALBUTEROL 3 ML VIAL NEB SCH ×2 (09:13→12:25)
[2019-05-06 10:12] VITALS: BP 130/72; TEMP 98.4; O2SAT 93
--- NOTE | 2019-05-07 15:59 | DS ---
SUPERVISING PHYSICIAN: Dalton Reardon MD DISCHARGE DIAGNOSIS: 1. Acute exacerbation of diastolic heart failure. 2. Chronic obstructive pulmonary disease with exacerbation. 3. Possible pneumonia, however, that has most likely been ruled out per chest x-ray. 4. Hyperlipidemia. 5. Hypertension. 6. Diabetes mellitus, type 2. 7. Continued nicotine dependency. 8. Gastroesophageal reflux disease. 9. Preexisting heart murmur. 10. Hypokalemia. HISTORY OF PRESENT ILLNESS: :This is a 63 year-old female who came in as a direct admission from Dr. Adorno's office. She has a longstanding history of smoking and a history of chronic obstructive pulmonary disease. She also diastolic heart failure. The patient had complaints of severe shortness of breath which started on the date of admission. She always has a cough and it was productive of whitish-yellow sputum. There was no pleuritic chest pain. Her 02 saturation was in the mid 90s at work today. In Dr. Adorno's office her oxygen saturation was in the mid to high 80s. She was placed on oxygen and it only came up to about 90%, chest x-ray was done that showed pulmonary vascular congestion of bilateral lower lobe air-space opacity concerning for pneumonia. Her labs were done which showed a normal white count with no left shift. Her chemistry was unremarkable except for a low potassium at 3.2. BNP was done and it was 37. HOSPITAL COURSE: The patient was admitted to the hospital and was given scheduled diuretics as well as some potassium supplementation. Nebulizer treatments were started p.r.n. She received some IV corticosteroids and was also started on Rocephin as well as azithromycin, DVT prophylaxis with Lovenox and she was given a PPI for ulcer prophylaxis. Her blood sugars were rechecked a.c. and h.s. with sliding scale Humalog coverage. Home medications were restarted. She progressively improved daily, although she was still quite weak and short of breath. The steroids were tapered off and she was started on oral prednisone. We discussed her smoking cessation at length. She got a 21 mg nicotine patch tenderness she says was helping with her nicotine cravings. She step-rosado improved. Yesterday, we had her ambulating in the hallway. She did require oxygen during the day as she normally has her oxygen only at night but due to her clinical improvement as well as her improved laboratory findings as well as her improved chest x-ray. she will be discharged home today in stable condition. LABORATORY: Sodium remained stable at 138, potassium did drop down to 3.4 and required supplementation but it is now 4.0. Chloride remains somewhat low, between 96 to 98. C02 was stable around 28 to 30. Creatinine was slightly low at 0.5. Liver enzymes were within normal limits. White count was normal on admission at 7.5 but after steroid administration they went up to 18,700 and today 11, 700. Hemoglobin and hematocrit were normal at 13.7 and 43.1. She initially had a left shift on her differential but today has normalized. RADIOLOGY: Her original chest x-ray was per the history of present illness. Followup chest x-ray was stable chest. She also had an echocardiogram done that showed preserved left ventricular systolic function with an ejection fraction of 50% with normal RV size, trace of mitral and tricuspid valve regurgitation and normal pericardium. DISCHARGE PLAN: The patient will be discharged home in stable condition. She is to resume her previous diabetic diet and increase her activity as tolerated. She is to wear oxygen during the day as well as night and encouraged to talk to Dr. Adorno on followup about her 02 needs. She has an appointment with Dr. Adorno at 10 AM on 05/08/19. She was encouraged to quit smoking. It was also recommended that if she does quit smoking, that she has pulmonary rehabilitation. She also may benefit from a sleep study in addition to her routine medications. She has completed her azithromycin but she will get Cefdinir as well as a nicotine patch and a prednisone taper. She is to return to the hospital or followup with Dr. Adorno for any problems or complications. DISCHARGE MEDICATIONS: 1. Multivitamins. 2. Gabapentin. 3. Aspirin. 4. Janumet. 5. Pregabalin. 6. Victoza. 7. Hydroxychloroquine. 8. Citalopram. 9. Atorvastatin. 10. Amlodipine. 11. Losartan/Hydrochlorothiazide. 12. Omeprazole. 13. Vitamin C. 14. Januvia. 15. Celebrex. 16. Cefdinir. 17. Nicotine patch. 18. Prednisone taper. #[id number] [facility]
== END 2019-05-06 12:25 | disposition home or self-care (01) | DRG 190 ==
LOC: MS 16:48
PROVIDERS: ADMIT Nurse Practitioner; ATTEND Nurse Practitioner Acute Care
DX: J44.1 Chronic obstructive pulmonary disease with (acute) exacerbation (principal); I50.33 Acute on chronic diastolic (congestive) heart failure; I11.0 Hypertensive heart disease with heart failure; E78.5 Hyperlipidemia, unspecified; E11.40 Type 2 diabetes mellitus with diabetic neuropathy, unspecified; K21.9 Gastro-esophageal reflux disease without esophagitis; E87.6 Hypokalemia; I07.1 Rheumatic tricuspid insufficiency; R91.1 Solitary pulmonary nodule; Z88.2 Allergy status to sulfonamides; Z79.899 Other long term (current) drug therapy

== ENCOUNTER → 2019-09-04 | Outpatient (CLI) | payer BC | LOC: LAB.O 09:14 | DX: M06.9 Rheumatoid arthritis, unspecified (principal); M15.0 Primary generalized (osteo)arthritis ==

== ENCOUNTER → 2020-01-10 | Outpatient (CLI) | payer BC | LOC: GMAM 14:31 | PROVIDERS: ATTEND Family Medicine | DX: M06.9 Rheumatoid arthritis, unspecified (principal) ==

== ENCOUNTER → 2020-02-01 | Outpatient (CLI) | payer BC ==
--- NOTE | 2020-02-01 12:16 | CT ---
Procedure: CT LUNG SCREENING Exam Date: February 01, 2020. Ordering Provider: KOFFI RAMOS Clinical Indication: HX OF TOBACCO USE current cigarette smoker. 48 pack years. This patient meets eligibility criteria for low-dose CT lung cancer screening. Comparison: Baseline screening study in this program. Prior chest CT scan without contrast January 2019. Technique: Using a multislice scanner, sequential helical axial imaging was obtained in the thorax, 2.5 mm thickness, 2.5 mm separation, from the level of the thoracic inlet through the lung bases without IV contrast. A low dose protocol was utilized for BMI greater than 30: BMI: 33.0. CTDI: 2.91 mGy. 120. kVp. 75 mA. DLP 108 mGy-cm. 2D sagittal and coronal reconstructed images, 6.0 mm thickness, were obtained. This exam was performed according to our departmental dose optimization program which includes use of automated exposure control, adjustment of the mA and/or kV according to patient size and/or use of iterative reconstruction technique. Nodule measurements under 10 mm are given as mean value of 3 axes diameters. FINDINGS: Lungs and large airways: Bilateral uniform blebs in the parenchyma in a centrilobular distribution more prevalent in the upper lung aguirre. Peripheral/subpleural groundglass density and honeycombing more prevalent in the bilateral upper lung aguirre. Peripheral/subpleural groundglass density and mosaic appearance of the lungs in the bilateral mid lung aguirre with subpleural blebs. Lung bases are unremarkable. Minimal thickening of the bilateral perihilar peribronchial pisano. These findings are stable since the prior study. Solitary groundglass nodule subpleural posterior right apex 7 mm on image axial series 10/16 not seen on the prior study. Focal perifissural thickening bilateral major fissures less than 10 mm. Pleura and space: Unremarkable. Mediastinum and george: evaluation limited by low dose technique and lack of IV contrast. Small hilar nodes are stable. Largest node 17 x 10 mm in the azygos region. No dominant soft tissue mass. Heart and great vessels: Atherosclerotic calcifications in several brachiocephalic vessels, aortic arch and thoracic aorta, and coronary arteries. Normal caliber and contour of the aorta. Chest wall, lower neck, axillae: Evaluation also limited by same factors as described above. Normal size nodes, otherwise unremarkable. Upper abdomen: Evaluation limited by low-dose technique. No free air or free fluid. Normal size and density of the spleen and right adrenal gland. Left adrenal gland measures approximately 2.9 x 2.0 cm with Hounsfield density less than -1. Stable and consistent with an adenoma. Osseous structures: Evaluation limited by low dose MIP technique. Multiple levels of anterior endplate spondylosis in the mid thoracic spine. Bilateral foraminal narrowing. Depression of the superior T5 endplate stable. Minimal arthrosis. IMPRESSION: 1. Chronic emphysematous changes in the upper lung aguirre and chronic peripheral/subpleural honeycombing in the upper lung aguirre and patchy groundglass densities in a mosaic pattern in the upper and mid lung aguirre. More focal groundglass density/nodule right upper lobe. No abnormal nodules and no mass. No acute focal infiltrate.. [facility] Best Practice Recommendations: please see below for Lung RADS category and FOLLOW-UP.* *Lung RADS category CATEGORY 2- Nodules with a very low likelihood (less than 1%) of becoming a clinically active cancer due to size or lack of growth. Nodules: Perifissural nodule(s) < 10 mm. (526mm3). Solid or part solid nodule(s) less than 6mm (113.1 mm3), new solid nodule less than 4mm (33.5 mm3). Ground glass nodule(s) less than 30mm (93226.2 mm3) or unchanged or slow growing ground glass nodule 30mm or greater. Cat 3 or 4 nodule unchanged for 3 or more months. FOLLOW-UP: Continue annual screening with a Low Dose Chest CT in 12 months for re-evaluation. Electronically signed by: Jonnie Vazquez MD 02/01/2020 12:15 PM CDT
--- NOTE | 2020-02-02 16:18 | MAM ---
EXAM DESCRIPTION: 3D Screening BILATERAL : Digital Mammography. CLINICAL HISTORY: 64 years Female SCREENING . No complaints. No personal history of breast cancer. Mother with breast cancer unknown age. Menarche age 11. No childbirth. Menopause age 40. No HRT.. Lifetime risk of developing breast cancer (Tyrer-Cuzick model)(%): 8.1. COMPARISON: Bilateral screening digital breast tomosynthesis October 2018 and October 2017. TECHNIQUE: Bilateral CC and MLO projection full-field images, digital tomosynthesis mammographic technique. Bilateral digital 2-D full-field MLO images. CAD available for 2-D images. FINDINGS: The breast parenchymal density pattern is: Almost entirely fatty. No skin thickening or nipple retraction. Solitary microcalcifications and coarse calcifications. No new focal, stellate mass or density, focal asymmetry , and no suspicious microcalcifications bilaterally. Stable mammograms compared to prior study. IMPRESSION: Benign exam. BIRAD CATEGORY: 2 BENIGN FINDINGS. RECOMMENDATIONS: FOLLOW UP: Routine digital bilateral mammographic screening, one year interval from January 2020. Written communication explaining the IMPRESSION and follow-up, will be mailed to the patient and referring health care provider. According to the [employer], yearly mammograms are recommended starting at age 40 and continuing as long as a woman is in good health. Any breast change noted on a breast self-exam should be reported promptly to the patient's healthcare provider. Breast MRI is recommended for women with an approximately 20-25% or greater lifetime risk of breast cancer, including women with a strong family history of breast or ovarian cancer and women who have been treated for Hodgkin's disease. A negative mammographic report should not delay tissue diagnosis in patients with significant clinical history or physical findings. Extremely dense breast tissue limits the sensitivity of digital mammography. Electronically signed by: Jonnie Vazquez MD 02/02/2020 4:17 PM CDT
== END ==
LOC: CT 08:00
PROVIDERS: ATTEND Internal Medicine Pulmonary Disease
DX: Z12.31 Encounter for screening mammogram for malignant neoplasm of breast (principal); Z87.891 Personal history of nicotine dependence; J44.9 Chronic obstructive pulmonary disease, unspecified; J43.9 Emphysema, unspecified; R91.8 Other nonspecific abnormal finding of lung field
CPT/HCPCS: 77063; 77067; G0297

== ENCOUNTER → 2020-07-25 | Outpatient (CLI) | payer BC ==
--- NOTE | 2020-07-25 13:54 | RAD ---
EXAM DESCRIPTION: Chest,2 Views CLINICAL HISTORY: 65 years Female, COPD COMPARISON: May 04, 2019 FINDINGS: 2 views/radiographs Heart size and pulmonary vessels are within normal limits. There is no pneumothorax or pleural effusion. The lungs are clear bilaterally. The soft tissues are unremarkable. No acute osseous findings. IMPRESSION: No acute cardiopulmonary abnormality. Electronically signed by: Allan Dumont MD 07/25/2020 1:52 PM [facility]
== END ==
LOC: RAD 09:08
PROVIDERS: ATTEND Internal Medicine Pulmonary Disease
DX: J44.9 Chronic obstructive pulmonary disease, unspecified (principal)

== ENCOUNTER → 2020-09-04 | Outpatient (CLI) | payer BC | LOC: GMAM 14:11 | PROVIDERS: ATTEND Family Medicine | DX: R80.9 Proteinuria, unspecified (principal) ==